=== PATIENT | male | born 2000 | race African-American/Black ===

== ENCOUNTER 2019-06-25 01:31 | Emergency (ER) | payer OTHER ==
--- NOTE | 2019-06-25 01:41 | ED Physician Documentation ---
PD HPI MALE - Stated complaint Stated Complaint: MALE - Chief complaint Chief Complaint: General - History obtained from History obtained from: Patient - History of Present Illness Timing - onset: How many weeks ago (3-4) Timing - duration: Weeks Timing - details: Gradual onset, Waxing and waning Pain level now: 7 Associated symptoms: Testiclar pain (bilateral). No: Dysuria, Urinary frequency, Hematuria, Discharge, Genital sore / lesion, Scrotal swelling PD HPI MALE CONTRIB FACTORS: Sexually active Recently seen: Not recently seen Review of Systems Constitutional: denies: Fever, Chills, Sweats : reports: Testicular pain. denies: Dysuria, Frequency, Hematuria, Discharge Skin: denies: Rash, Lesions PD PAST MEDICAL HISTORY - Past Medical History Past Medical History: Yes - Past Surgical History Past Surgical History: No - Present Medications Home Medications: Ambulatory Orders Medication Instructions Recorded Confirmed Ibuprofen 600 mg PO Q6HR PRN #20 tablet 06/25/19 - Allergies Allergies/Adverse Reactions: Allergies Allergy/AdvReac Type Severity Reaction Status Date / Time No Known Drug Allergies Allergy Verified 06/25/19 01:37 - Social History Does the pt smoke?: No Smoking Status: Never smoker Does the pt drink ETOH?: No Does the pt have substance abuse?: No - Immunizations Immunizations are current?: Yes - POLST Patient has POLST: No PD ED PE NORMAL - Vitals Vital signs reviewed: Yes - General General: Alert and oriented X 3, No acute distress, Well developed/nourished PD ED PE EXPANDED - Male Male : Normal Exam, Circumcised, Testes descended ingris, Normal lie/cremastaric, Tenderness (mild tenderness bilateral testes). No: Skin lesions, Discharge, Testicular Mass Results - Vitals Vitals: Vital Signs - 24 hr 06/25/19 06/25/19 01:34 03:33 Temperature 37.1 C 37.0 C Heart Rate 78 78 Respiratory 16 14 Rate Blood Pressure 123/69 127/67 O2 Saturation 100 98 Oxygen O2 Source Room air - Labs Labs: Laboratory Tests 06/25/19 01:42 Urine Color YELLOW Urine Clarity CLEAR Urine pH 6.5 Ur Specific [place] 1.015 Urine Protein NEGATIVE Urine Glucose (UA) NEGATIVE Urine Ketones NEGATIVE Urine Occult Blood NEGATIVE Urine Nitrite NEGATIVE Urine Bilirubin NEGATIVE Urine Urobilinogen 1 (NORMAL) Ur Leukocyte Esterase NEGATIVE Ur Microscopic Review NOT INDICATED Urine Culture Comments NOT INDICATED - Rads (name of study) testicular US Radiology: Prelim report reviewed, See rad report PD MEDICAL DECISION MAKING - ED course Complexity details: reviewed results, re-evaluated patient, considered differential, d/w patient Departure - Departure Disposition: 01 Home, Self Care Clinical Impression: Testicular pain Condition: Good Instructions: ED Testicular Pain UKO, ED Varicocele Follow-Up: NEVIN Nolan [Provider Group] Prescriptions: Ibuprofen 600 mg PO Q6HR PRN #20 tablet PRN Reason: Pain Forms: Activity restrictions Discharge Date/Time: 06/25/19 03:42
[2019-06-25 01:50] LABS: BILIRUBIN,URINE NEGATIVE (NEGATIVE); CLARITY,URINE CLEAR (CLEAR); GLUCOSE, URINE (UA) NEGATIVE (NEGATIVE); KETONES,URINE (UA) NEGATIVE (NEGATIVE); LEUKOCYTE ESTERASE, URINE NEGATIVE (NEGATIVE); NITRITE,URINE NEGATIVE (NEGATIVE); OCCULT BLOOD,URINE NEGATIVE (NEGATIVE); PH,URINE 6.5 PH (5.0-7.5); PROTEIN,URINE NEGATIVE (NEGATIVE); UROBILINOGEN,URINE 1 (NORMAL) E.U./dL (NORMAL)
[2019-06-25] MEDS ORDERED: IBUPROFEN 600 MG TABLET PO STA (02:05)
--- NOTE | 2019-06-25 03:20 | Ultrasound Report ---
Reason: bilateral testicular pain Procedure Date: 06/25/2019 Accession Number: [id number] / [id number] Procedure: US - Testicle w/Doppler CPT Code: FULL RESULT: EXAM: SCROTAL ULTRASOUND EXAM DATE: 06/25/2019 03:05 AM. CLINICAL HISTORY: Bilateral testicular pain. COMPARISON: None. TECHNIQUE: Real-time scanning was performed with static images obtained. Color-flow images were utilized. FINDINGS: Right: Testis: 5.3 x 3.1 x 2.1 cm. Normal size and echotexture. No mass, calcification, or abnormal blood flow. Epididymis: 0.8 x 1.2 x 1.2 cm. Normal size and echotexture. No mass or abnormal blood flow. Hydrocele: None. Varicocele: Questionable varicocele Left: Testis: 4.9 x 3.0 x 2.2 cm. Normal size and echotexture. No mass, calcification, or abnormal blood flow. Epididymis: 1.0 x 0.9 x 1.2 cm. Normal size and echotexture. No mass or abnormal blood flow. Hydrocele: None. Varicocele: Questionable varicocele. IMPRESSION: 1. Unremarkable testicles. Normal vascularity. No evidence for torsion. 2. Questionable subtle bilateral varicoceles. RADIA
[2019-06-25 03:35] VITALS: BP 127/67
[2019-06-25 22:53] LABS: TRICHOMONAS VAGINALIS DNA NEGATIVE (NEGATIVE)
== END 2019-06-25 03:42 | disposition home or self-care (01) ==
LOC: ED 01:31
DX: N50.812 Left testicular pain (principal); N50.811 Right testicular pain
CPT/HCPCS: 76870; 81003; 87491; 87591; 87661; 93975; 99282; 99284; A9270; 81001; 87086

== ENCOUNTER 2021-04-21 17:22 | Emergency (ER) | payer OTHER ==
[2021-04-21] MEDS ORDERED: methocarbamoL 500 MG TABLET PO STA (17:47)
[2021-04-21] MEDS ORDERED: oxyCODONE 5 MG TABLET PO STA (17:47)
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
[2021-04-21 19:07] VITALS: BP 157/62
== END 2021-04-21 19:17 | disposition home or self-care (01) ==
LOC: ED 17:22
DX: M62.830 Muscle spasm of back (principal); V89.2XXA Person injured in unspecified motor-vehicle accident, traffic, initial encounter
CPT/HCPCS: 99282; 99284; A9270

== ENCOUNTER 2021-09-10 01:18 | Outpatient (CLI) | payer OTHER | END 2021-09-10 01:19 | disposition critical access hospital (66) | LOC: EMS 01:18 | DX: Z04.1 Encounter for examination and observation following transport accident (principal); M54.9 Dorsalgia, unspecified | CPT/HCPCS: A0425; A0429 ==

== ENCOUNTER 2021-09-10 01:38 | Observation (INO) | payer OTHER ==
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
[2021-09-10 02:21] LABS: BASOPHILS % (AUTO) 0.3 %; EOSINOPHILS # (AUTO) 0.2 10^3/uL (0.0-0.7); EOSINOPHILS % (AUTO) 1.8 %; HCT - HEMATOCRIT 45.4 % (42.0-52.0); HGB - HEMOGLOBIN 15.4 g/dL (14.0-18.0); LYMPHOCYTES # (AUTO) 2.5 10^3/uL (1.5-3.5); LYMPHOCYTES % (AUTO) 27.5 %; MEAN CORPUSCULAR HEMOGLOBIN 27.8 pg (27.0-31.0); MEAN CORPUSCULAR HGB CONC 33.9 g/dL (32.0-36.0); MEAN CORPUSCULAR VOLUME 81.9 fL (80.0-94.0); MEAN PLATELET VOLUME 12.6 fL (7.4-11.4); MONOCYTES # (AUTO) 0.6 10^3/uL (0.0-1.0); MONOCYTES % (AUTO) 7.1 %; NEUTROPHILS # (AUTO) 5.7 10^3/uL (1.5-6.6); NEUTROPHILS % (AUTO) 63.2 %; PLT - PLATELET COUNT 177 10^3/uL (130-450); RED BLOOD COUNT 5.54 10^6/uL (4.70-6.10); RED CELL DISTRIBUTION WIDTH 12.6 % (12.0-15.0)
[2021-09-10 02:35] LABS: ALBUMIN 4.7 g/dL (3.2-5.5); ALBUMIN/GLOBULIN RATIO 1.5 (1.0-2.2); BILIRUBIN,TOTAL 0.6 mg/dL (0.2-1.0); CALCIUM 9.1 mg/dL (8.5-10.3); CREATININE 1.1 mg/dL (0.6-1.2); ETOH - ETHANOL 116.4 mg/dL; POTASSIUM 3.4 mmol/L (3.5-5.0); TOTAL PROTEIN 7.9 g/dL (6.7-8.2)
[2021-09-10 02:55] LABS: MUDS CUTOFF CONCENTRATIONS CUTOFF CONC BELOW:
[2021-09-10 02:55] LABS: INR 1.3 (0.8-1.2); PT - PROTHROMBIN TIME 14.6 secs (9.9-12.6)
[2021-09-10] MEDS ORDERED: SODIUM CHLORIDE FLUSH 0.9% 10 ML SYRINGE IVP PRN (02:55)
[2021-09-10] MEDS ORDERED: ONDANSETRON 4 MG/2 ML VIAL IVP PRN (02:55)
[2021-09-10] MEDS ORDERED: HYDROmorphone 0.5 MG/0.5 ML SYRINGE IVP PRN (02:55)
[2021-09-10] MEDS ORDERED: ONDANSETRON ODT 4 MG TABLET TL PRN (02:55)
[2021-09-10 02:56] LABS: BILIRUBIN,URINE NEGATIVE (NEGATIVE); CLARITY,URINE CLEAR (CLEAR); GLUCOSE, URINE (UA) NEGATIVE (NEGATIVE); KETONES,URINE (UA) NEGATIVE (NEGATIVE); LEUKOCYTE ESTERASE, URINE NEGATIVE (NEGATIVE); NITRITE,URINE NEGATIVE (NEGATIVE); OCCULT BLOOD,URINE LARGE (NEGATIVE); PROTEIN,URINE 100 mg/dL (NEGATIVE); UROBILINOGEN,URINE 0.2 (NORMAL) E.U./dL (NORMAL)
[2021-09-10 03:02] LABS: BACTERIA,URINE None Seen /HPF (None Seen); CASTS, URINE 3-5 Hyaline Casts /LPF; SQUAMOUS EPITHELIAL CELL,UR NONE SEEN (<= Few); WBC,URINE 0-3 /HPF (0-3)
[2021-09-10 03:02] LABS: PARTIAL THROMBOPLASTIN TIME 28.9 secs (24.9-33.3)
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
[2021-09-10 03:08] LABS: AMPHETAMINE SCREEN,URINE NEGATIVE (NEGATIVE); BARBITURATE SCREEN,UR NEGATIVE (NEGATIVE); BENZODIAZEPINES SCREEN, URINE NEGATIVE (NEGATIVE); COCAINE SCREEN URINE NEGATIVE (NEGATIVE); METHADONE SCREEN, URINE NEGATIVE (NEGATIVE); METHAMPHETAMINES SCREEN, URINE NEGATIVE (NEGATIVE); OPIATE SCREEN, URINE NEGATIVE (NEGATIVE); OXYCODONE SCREEN, URINE NEGATIVE (NEGATIVE); PROPOXYPHENE SCREEN, URINE NEGATIVE (NEGATIVE); THC CANNABINOID SCREEN, URINE NEGATIVE (NEGATIVE); TRICYCLIC ANTIDEPRESSANT,URINE NEGATIVE (NEGATIVE)
[2021-09-10] MEDS ORDERED: IOVERSOL 320 100 ML VIAL IVP ONE ×2 (03:28→05:36)
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
[2021-09-10 04:54] LABS: B. PARAPERTUSSIS- RESP PCR PAN NOT DETECTED; B. PERTUSSIS- RESP PCR PANEL NOT DETECTED; C. PNEUMONIAE- RESP PCR PANEL NOT DETECTED; CORONAVIRUS 229E-RESP PCR NOT DETECTED; CORONAVIRUS HKU1-RESP PCR NOT DETECTED; CORONAVIRUS NL63-RESP PCR NOT DETECTED; CORONAVIRUS OC43-RESP PCR NOT DETECTED; HUMAN METAPNEUMOVIRUS NOT DETECTED; INFLUENZA A- RESP PCR PANEL NOT DETECTED; INFLUENZA B - RESP PCR PANEL NOT DETECTED; M. PNEUMONIAE- RESP PCR PANEL NOT DETECTED; PARAINFLUENZA VIRUS 1 NOT DETECTED; PARAINFLUENZA VIRUS 2 NOT DETECTED; PARAINFLUENZA VIRUS 3 NOT DETECTED; PARAINFLUENZA VIRUS 4 NOT DETECTED; RHINOVIRUS/ENTEROVIRUS NOT DETECTED; RSV- RESP PCR PANEL NOT DETECTED; SARS-CoV-2 -RESP PCR PANEL NOT DETECTED
[2021-09-10] MEDS: oxyCODONE 5 MG TABLET PO PRN ×2 (06:15→11:15)
[2021-09-10] MEDS: ACETAMINOPHEN 325 MG TABLET PO PRN ×2 (06:15→11:15)
[2021-09-10] MEDS: LACTATED RINGERS 1,000 ML IV SCH ×2 (06:19→11:17)
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
[2021-09-10] MEDS ORDERED: SODIUM CHLORIDE FLUSH 0.9% 10 ML SYRINGE IVP SCH (09:00)
[2021-09-10 11:30] VITALS: BP 136/78
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
== END 2021-09-10 14:35 | disposition home or self-care (01) ==
LOC: ED 01:38 → MS2 02:55
PROVIDERS: ADMIT Surgery; ATTEND Surgery
DX: Z20.822 Contact with and (suspected) exposure to COVID-19 (principal); S39.92XA Unspecified injury of lower back, initial encounter; M54.2 Cervicalgia; V43.52XA Car driver injured in collision with other type car in traffic accident, initial encounter
CPT/HCPCS: 0202U; 36415; 51702; 70450; 71260; 72125; 74177; 80053; 80306; 80320; 81001; 83690; 85025; 85610; 85730; 86850; 86900; 86901; 99282; 99285; A9270; G0378; J7120; Q9967; 81003; 87086